=== PATIENT | female | born 1995 | race Caucasian/White ===

== ENCOUNTER 2022-07-31 18:23 | Emergency (ER) | payer BC ==
[~2022-07-31] VITALS: Ht 160 cm; Wt 90.7 kg
[2022-07-31 18:37] VITALS: BP 108/60
--- NOTE | 2022-07-31 18:46 | NUR ---
Patient ambulated to bed 7.
--- NOTE | 2022-07-31 19:03 | NUR ---
26 y/o female bib self with c/o fever, cough, headache, body ache and sore throat x 3 days. Patient reports daughter was sick on 07/25/22 and diagnosed with a viral infection. Patient started with symptoms after. Patient has been taking Tylenol with minimal relief. Patient's temperature was 102.4 at triage cooling measure initiated. Medical History: Spinal Meningitis, Asthma ALLERGY: [employer]UL[employer]TIBIOTICS, CEFTRIAXONE
--- NOTE | 2022-07-31 19:29 | NUR ---
Report given to ANT Kam for transfer of care.
[2022-07-31] MEDS: ACETAMINOPHEN EXTRA STRENGTH 500 MG TAB PO ONE (19:58)
[2022-07-31] MEDS: NACL 0.9% 1,000 ML IV ONE ×2 (20:34→22:29)
--- NOTE | 2022-07-31 20:34 | NUR ---
RT AT BEDSIDE
[2022-07-31] MEDS: ALBUTEROL 0.083% 2.5 MG/3 ML NEBU INH ONE (20:36)
[2022-07-31] MEDS: IPRATROPIUM 0.02% 0.5 MG/2.5 ML NEBU INH ONE (20:36)
--- NOTE | 2022-07-31 21:22 | NUR ---
PT IS RESTING IN BED WITH HOB ELEVATED. PT DENIES SOB OR CP. HX OF ASTHMA. PT IS FEBRILE 101.7. DR DREW AWARE PT MEDIACATED. NEB TX GIVEN . PENDING DISPO
[2022-07-31] MEDS: KETOROLAC 30 MG/ML VIAL IVP ONE (22:18)
[2022-07-31] MEDS ORDERED: TAM75 PO (22:23)
[2022-07-31] MEDS ORDERED: ACET-10509 PO (22:24)
--- NOTE | 2022-07-31 23:00 | NUR ---
Patient discharged with v/s stable. Written and verbal after care instructions given and explained. Patient verbalized understanding. Ambulatory with steady gait. All questions addressed prior to discharge. Advised to follow up with PMD.
[2022-07-31 23:01] VITALS: BP 100/51
== END 2022-07-31 23:01 | disposition home or self-care (01) ==
LOC: MED 18:23
DX: J10.1 Influenza due to other identified influenza virus with other respiratory manifestations (principal); Z20.822 Contact with and (suspected) exposure to COVID-19; J45.909 Unspecified asthma, uncomplicated; Z79.899 Other long term (current) drug therapy
CPT/HCPCS: 71045; 87426; 87804; 94640; 96361; 96374; 99284; J1885; J7613; J7644; Q0092

== ENCOUNTER 2022-08-02 14:09 | Emergency (ER) | payer BC ==
[~2022-08-02] VITALS: Ht 160 cm; Wt 90.7 kg
[~2022-08-02 14:09] MED LIST: ACET-10509 PO; TAM75 PO
[2022-08-02 14:31] VITALS: BP 122/75
[2022-08-02] MEDS ORDERED: PROCHLORPERAZINE 10 MG/2 ML VIAL IVP ONE (15:30)
[2022-08-02] MEDS ORDERED: LIDOCAINE 5% 1 EA PATCH TP ONE (15:30)
[2022-08-02] MEDS ORDERED: NACL 0.9% 1,000 ML IV ONE (15:30)
--- NOTE | 2022-08-02 15:45 | NUR ---
PATIENT AMBULATED TO BED 6.
[2022-08-02 16:19] LABS: BASOPHILS % (AUTO) 0.3 % (0.0-2.0); EOSINOPHILS % (AUTO) 0.1 % (0.0-4.0); HEMATOCRIT 34.7 % (36-48); HEMOGLOBIN 11.5 g/dL (12.0-16.0); LYMPHOCYTES # (AUTO) 0.7 K/uL (2.5-16.5); LYMPHOCYTES % (AUTO) 18.2 % (20.5-51.1); MEAN CORPUSCULAR HEMOGLOBIN 27 pg (27-31); MEAN CORPUSCULAR HGB CONC 33 g/dL (33-37); MONOCYTES # (AUTO) 0.3 K/uL (0.8-1.0); NEUTROPHILS # (AUTO) 2.9 K/uL (1.8-7.7); NEUTROPHILS % (AUTO) 74.4 % (42.2-75.2); PLATELET COUNT (AUTO) 228 K/uL (140-450); RED BLOOD CELL COUNT(AUTO) 4.34 MIL/uL (4.20-5.40); RED CELL DISTRIBUTION WIDTH 15.5 % (11.6-13.7)
--- NOTE | 2022-08-02 16:20 | NUR ---
26 y/o female bib self with c/o headache, dizziness, vomiting, diarrhea and low appetite since yesterday. Patient has been having flu like symptoms since Thursday07/28/22. Patient reports daughter was sick with similar symptoms. Patient has had intermittent fevers since Thursday. MEDICAL HISTORY: Asthma, Spinal Menongitis NKDA
[2022-08-02 16:42] LABS: ALBUMIN 3.4 g/dL (3.4-5.0); ANION GAP 13.9 (8-16); CARBON DIOXIDE 23.5 mmol/L (21-32); CREATININE 0.7 mg/dL (0.6-1.3); POTASSIUM 3.4 mmol/L (3.5-5.1); TOTAL BILIRUBIN 0.3 mg/dL (0.0-1.0)
--- NOTE | 2022-08-02 17:30 | NUR ---
Dr. Kemp re-evaluating patient at bedside.
[2022-08-02] MEDS ORDERED: LID5T TP (17:39)
[2022-08-02 17:53] VITALS: BP 131/74
--- NOTE | 2022-08-02 17:53 | NUR ---
Patient discharged with v/s stable. Written and verbal after care instructions given. Patient alert, oriented and verbalized understanding of instructions. Ambulatory with steady gait. All questions addressed prior to discharge. ID band removed. Patient advised to follow up with PMD. Rx of lidocaine given. Opportunity to ask questions provided and answered. COPY OF LABWORK GIVEN TO PATIENT.
--- NOTE | 2022-08-02 17:54 | NUR ---
The patient's care was reviewed and supervised by Ivana Handley, RN, RN.
== END 2022-08-02 17:53 | disposition home or self-care (01) ==
LOC: MED 14:09
DX: J10.1 Influenza due to other identified influenza virus with other respiratory manifestations (principal); Z79.899 Other long term (current) drug therapy
CPT/HCPCS: 36415; 80053; 83690; 85025; 96361; 96374; 99283; J0780; J7030